=== PATIENT | female | born 1980 | race African-American/Black ===

== ENCOUNTER 2016-03-13 00:05 | Emergency (ER) | payer SELFPAY ==
[~2016-03-13 00:05] MED LIST: CLIN-73 PO; FERR240T9 PO; PREN-39 PO
== END 2016-03-13 01:45 | disposition left against medical advice (07) ==
LOC: E/R 00:05
DX: Z53.21 Procedure and treatment not carried out due to patient leaving prior to being seen by health care provider (principal)

== ENCOUNTER 2016-07-30 15:19 | Outpatient (CLI) | payer OTHER ==
[~2016-07-30] VITALS: Ht 165.1 cm; Wt 91.8 kg
[2016-07-30 15:41] VITALS: BP 114/76; PULSE 77; RESP 18; Ht 165.1 cm; Wt 91.8 kg
--- NOTE | 2016-07-30 15:58 | TRIAGE ---
OB Triage Datetime Report Generated by CPN: 07/30/2016 15:58 Datetime: 07/30/2016 15:50 Labor Evaluation Monitor Mode: External Resting Tone [place]: Relaxed Datetime: 07/30/2016 15:37 EGA: 21.6 Datetime: 07/30/2016 15:35 Assessment Type: Triage Maternal Assessment Level of Consciousness: Fully Conscious DTR's/Clonus: DTRs 2+; No Clonus Headache: Denies Blurred Vision: No Respiratory Effort: Unlabored; Regular Rhythm; Equal Expansion Breath Sounds, Left: Clear and Equal Breath Sounds, Right: Clear and Equal Nausea/Vomiting: Denies RUQ Epigastric Pain: Denies Lower Extremities Edema: Bilateral Lower Extremities Degree: Trace Upper Extremities Edema: None Degree: None Facial Edema: None Fall Risk Assessment History of Falling: (0) No Secondary Diagnosis: (0) No Ambulatory Aid: (0) Bedrest/Nurse Assist IV Therapy: (0) No Gait: (0) Normal/Bedrest/Immobile Mental Status: (0) Oriented to Own Ability Fall Score: 0 Fall Risk Score Definition: No Risk: No action required Datetime: 07/30/2016 15:34 Time of Arrival: 07/30/2016 15:15 Arrived By: Wheelchair Arrived From: Emergency Dept Chief Complaint: SOB and abdominal tightening Contractions: Denies/Absent Rupture of Membranes: Denies Vaginal Discharge: Denies Recent Sexual Intercouse: Denies Abdominal Trauma: Not Applicable Patient Complaints: Other Time Provider Notified: 07/30/2016 15:40 Provider Notified: Foroohar Initial Plan: SOB, Abdominal tightening Datetime: 07/30/2016 15:23 Stage of : OB Triage Temperature Route: Oral Heart Rate FHR Baseline Rate: 150 Monitor Mode: Doppler
[2016-07-30] MEDS ORDERED: SYN75 PO (16:00)
[2016-07-30] MEDS ORDERED: CHOL400C PO (16:00)
--- NOTE | 2016-07-30 17:42 | CONS ---
Date/Time of Note Date/Time of Note DATE: 07/30/16 TIME: 17:35 Consultation Date/Type/Reason Admit Date/Time July 30, 2016 OB triage consult Reason for Consultation This patient is a 35 years old 2 para 1 living 0 with 2 therapeutic 1 with estimated date of confinement December 04, 2016 which makes her about 21 weeks and 6 days .She came to emergency room complaining of shortness of breath , but due to she was first sent to OB triage to be evaluated and return to emergency room for further evaluation and treatment of her shortness of breath. In reviewing her past history she is currently taking pain medication Dilaudid and she had a history of hypothyroidism . Patient states that she is allergic to penicillin . Due to hypothyroidism she is on Synthroid 75 mcg On examination she is a well-developed well-nourished somewhat overweight -[place] lady in no distress. Her vital signs are basically normal; blood pressure 114/76, pulse rate 76,, abrasion 18, temperature 98.7 On FHT tracing of heart rate is around 140-150 and reactive. No evidence of contraction .no abdominal pain, no pelvic pressure Constitutional: No chills, No diaphoresis, No disoriented, No febrile, No improved, No no complaints, No other, No poor po, No requiring IVF, No requiring O2 Eyes: No discharge, No no complaints, No other, No pain, No redness, No visual change Respiratory: other (Chest is clear on auscultation and percussion no rales heart normal sinus rhythm no tachycardia), No cough, No no complaints, No pain, No pleuritic pain, No shortness of breath, No sputum, No wheezing Cardiovascular: other (No tachycardia) Gastrointestinal: No blood, No constipation, No decreased appetite, No diarrhea , No flatus, No nausea, No no complaints, No other, No pain, No passing stool, No vomiting Genitourinary: No bleeding, No discharge, No dysuria, No flank pain, No hematuria, No no complaints, No other Musculoskeletal: No back pain, No bone/joint pain, No neck pain, No no complaints, No other, No restricted range of motion, No swelling Skin: No bruising, No erythema, No laceration, No no complaints, No other, No pruritis, No rash, No skin lesions Neurologic: other (Hypothyroid on medication), No confusion, No dizziness, No focal-weakness, No headache, No no complaints , No seizure, No syncope Endocrine: No dry skin, No no complaints, No other, No polydypsia, No polyuria , No temp intolerance Psychological: No anxiety, No confusion, No depression, No nl mood/affect, No no complaints, No other, No suicidal Immunologic: No immunodeficiency, No no complaints, No other, No pruritis, No rhinitis, No urticaria Additional Comments With these finding which were negative regarding any obstetrical problem , patient was reassured and sent back to emergency room for further evaluation and treatment of her complaint regarding shortness of breath Social History Smoking Status: Never smoker Exam/Review of Systems Vital Signs Vitals Vital Signs Date Time Temp Pulse Resp B/P Pulse Ox O2 Delivery O2 Flow Rate FiO2 07/30/16 15:41 98.7 77 18 114/76 Room Air DARLING SINGH MD Jul 30, 2016 17:42
== END 2016-07-30 16:15 | disposition home or self-care (01) ==
LOC: OBT 15:19 → L-D 15:19 → OBT 16:15
DX: O26.892 Other specified pregnancy related conditions, second trimester (principal); R06.02 Shortness of breath; O99.282 Endocrine, nutritional and metabolic diseases complicating pregnancy, second trimester; E03.9 Hypothyroidism, unspecified; Z88.0 Allergy status to penicillin; Z3A.21 21 weeks gestation of pregnancy
CPT/HCPCS: G0463